=== PATIENT | male | born 1985 | race Caucasian/White ===

== ENCOUNTER 2023-12-22 01:24 | Emergency (ER) | payer OTHER, SELFPAY ==
[2023-12-22 01:32] VITALS: BP 168/90; PULSE 80; RESP 16; TEMP 36.2; O2SAT 98; BMI 33.7
--- NOTE | 2023-12-22 01:39 | ED_ITS ---
HPI - Eye Problem General Time Seen by Provider: 01:39 Date Seen: 12/22/23 Chief complaint: Eye Problems Stated complaint: Left eye-Hurts Time Seen by Provider: 12/22/23 01:33 Source: patient and RN notes reviewed Mode of arrival: ambulatory Limitations: no limitations History of Present Illness HPI Narrative: This 38-year-old male is coming in with left eye irritation. He was using his weed eater earlier in the evening. He did feel something go in his left eye. He did rinse it, took his contact out. He tried ibuprofen as he was awoken from his sleep with ongoing pain and irritation. States it still feels like there is something in his eye, his eye is watering and tearing up. Denies any blurry vision or visual changes. Related Data Home Medications Medication Instructions Recorded Confirmed cetirizine 10 mg tablet (Zyrtec) 10 mg PO DAILY PRN 12/22/23 12/22/23 Allergies Allergy/AdvReac Type Severity Reaction Status Date / Time No Known Drug Allergies Allergy Verified 12/22/23 01:36 Review of Systems Narrative: As per HPI. Exam Const: Vital Signs, click to edit/add: Vital Signs - 24 hr 12/22/23 01:32 12/22/23 02:31 Temperature 97.1 F L 98.0 F Pulse Rate [Pulse Oximeter] 80 80 Respiratory Rate 16 18 Blood Pressure [Le ft Upper Arm] 168/90 H 145/84 H Pulse Oximetry 98 Oxygen Delivery Me thod Room Air Patient is alert, interactive, no apparent distress. He has glasses on but immediately you can tell that there is injection of his left conjunctivae. He is tearing with the left eye, no significant periorbital structures. Extraocular muscles are still intact, pupils equal and round. No ciliary flush noted. With magnified visualization, see no retained foreign body. Two drops of tetracaine were placed and fluorescein staining done. Patient had relief of his symptoms with the tetracaine. I see no retained foreign body, eyelid could not completely be everted but was able to lift and runny cotton swab underneath, did not visualize any foreign body. He has significant uptake of stain below the cornea about the with of the cornea at its widest dimension. It is semi circular band underneath the cornea that is up taking in the conjunctiva. Again, see no foreign body. Documenting provider has reviewed patient's vital signs: yes Course Course ED Course: Patient will be sent home with gentamicin eyedrops. Vital Signs Vital signs: Initial Vital Signs Temperature 97.1 F L 12/22/23 01:32 Temperature Source Temporal Artery Scan 12/22/23 01:32 Pulse Rate 80 12/22/23 01:32 Pulse Rhythm Regular 12/22/23 01:32 Respiratory Rate 16 12/22/23 01:32 Blood Pressure 168/90 H 12/22/23 01:32 Blood Pressure Mean 116 H 12/22/23 01:32 Blood Pressure Position Sitting 12/22/23 01:32 Pulse Oximetry 98 12/22/23 01:32 Oxygen Delivery Method Room Air 12/22/23 01:32 Vital Signs Temperature 97.1 F L 12/22/23 01:32 Pulse Rate 80 12/22/23 01:32 Respiratory Rate 16 12/22/23 01:32 Blood Pressure 168/90 H 12/22/23 01:32 Pulse Oximetry 98 12/22/23 01:32 Oxygen Delivery Method Room Air 12/22/23 01:32 Temperature 98.0 F 12/22/23 02:31 Pulse Rate 80 12/22/23 02:31 Respiratory Rate 18 12/22/23 02:31 Blood Pressure 145/84 H 12/22/23 02:31 Pulse Oximetry 98 12/22/23 01:32 Oxygen Delivery Method Room Air 12/22/23 01:32 Discharge Plan Discharge Clinical Impression: Conjunctival abrasion Qualifiers: Encounter type: initial encounter Laterality: left Qualified Code(s): S05.02XA - Injury of conjunctiva and corneal abrasion without foreign body, left eye, initial encounter Patient Disposition: Home, Self-Care Condition: Stable Instructions: Corneal Abrasion (ED) Additional Instructions: Use the gentamicin eyedrops, 2 drops left eye up to 4 times a day for 3-5 days. Tylenol and ibuprofen per bottle directions as needed for discomfort, do recommend taking Tylenol when you get home for additional pain management. If your eye is not quickly improving, worsening at all, do need to see your eye doctor as soon as possible. You may need to consider not wearing your contacts for the next couple of days to allow this to heal fully. Activity Level: Activity as Tolerated Prescriptions: No Action cetirizine [Zyrtec] 10 mg tablet 10 mg PO DAILY PRN Follow Up/Referrals: Provider,Not a Local [Primary Care Provider] - Stand Alone Forms: [employer] Info Instructions
[2023-12-22 02:31] VITALS: BP 145/84; PULSE 80; RESP 18; TEMP 36.7
== END 2023-12-22 02:32 | disposition home or self-care (01) ==
PROVIDERS: Emergency Provider Family Medicine
DX: S05.02XA Injury of conjunctiva and corneal abrasion without foreign body, left eye, initial encounter (principal)
CPT/HCPCS: 99282; 99283; A9270